=== PATIENT | female | born 1945 | race American Indian/Alaskan Native ===

== ENCOUNTER 2016-10-03 13:20 | Outpatient (CLI) | payer MEDICARE ==
--- NOTE | 2016-10-05 09:01 | Ultrasound Report ---
DIAGNOSTIC LEFT MAMMOGRAM WITH CAD AND TARGETED LEFT BREAST ULTRASOUND: HISTORY: 6 month follow-up study. Comparison is made to the previous mammogram from February 17, 2016 and ultrasound on the same date. FINDINGS: The breast parenchyma is heterogeneously dense. Persistent nodular opacities are seen at the 3 and 12:00 areas respectively, as noted on the previous study. These are unchanged in size. There was no architectural distortion. Several monomorphic benign calcifications are noted. Sonographic evaluation demonstrates a 1.0 x 0.5 cm hypoechoic ovoid-shaped mass with smooth margins and no acoustic shadowing or other associated suspicious features. This is unchanged since the previous study. At the 12:00 position, there is a more elongated ovoid-shaped hypoechoic mass measuring 9 x 6 x 3 mm, also with no acoustic shadowing. No interval change in size or configuration. In the left axillary region, there is a small lymph node with benign features. IMPRESSION: Stable solid lesions in the left breast demonstrating benign imaging features, as detailed above. BI-RADS CATEGORY: 2 = Benign ACR BI-RADS MAMMOGRAPHIC CODES: 0 = Needs additional imaging evaluation; 1 = Negative; 2 = Benign; 3 = Probably benign; 4 = Suspicious; 5 = Malignant; 6 = Known biopsy-proven malignancy COMMENT: 1. Dense breast tissue, i.e., adenosis, fibrocystic changes, etc., may obscure an underlying neoplasm. 2. Approximately 10% of cancers are not detected with mammography. 3. A negative mammography report should not delay biopsy if a clinically suspicious mass is present. RECOMMENDATION: Routine screening schedule, ACS guidelines.
== END 2016-10-03 13:21 | disposition home or self-care (01) ==
LOC: SPVWC 13:20
PROVIDERS: ATTEND Surgery
DX: R92.8 Other abnormal and inconclusive findings on diagnostic imaging of breast (principal)
CPT/HCPCS: 76642; G0206

== ENCOUNTER 2016-12-06 12:18 | Outpatient (CLI) | payer MEDICARE ==
[2016-12-06 12:40] LABS: Basophils % (Auto) 0.3 % (0.0-1.8); Eosinophils % (Auto) 0.2 % (0.0-4.3); Hematocrit 38.6 % (30.3-42.9); Hemoglobin 12.8 gm/dl (10.1-14.3); Mean Corpuscular HGB Conc 33 % (30-34); Mean Corpuscular Hemoglobin 29 pg (28-32); Mean Corpuscular Volume 86 fl (79-97); Platelet Count 350 K/mm3 (140-440); Red Blood Count 4.48 M/mm3 (3.65-5.03); Red Cell Distribution Width 16.1 % (13.2-15.2); White Blood Count 10.6 K/mm3 (4.5-11.0)
[2016-12-06 13:16] LABS: Albumin 4.1 g/dL (3.9-5); BUN/Creatinine Ratio 20.71; Calcium 9.2 mg/dL (8.4-10.2); Phosphorous 3.2 mg/dL (2.5-4.5); Uric Acid 6.5 mg/dL (3.5-7.6)
[2016-12-06 13:17] LABS: Chloride 103.8 mmol/L (98-107); Potassium 4.2 mmol/L (3.6-5.0)
[2016-12-06 13:27] LABS: Bilirubin,Urine NEG (Negative); Blood,Urine NEG (Negative); Ketones,Urine NEG (Negative); Leukocyte Esterase,Urine NEG (Negative); Nitrite,Urine NEG (Negative); Protein,Urine <15 mg/dL mg/dL (Negative); Urobilinogen,Urine < 2.0 mg/dL (<2.0); WBC,Urine < 1.0 /HPF (0.0-6.0)
== END 2016-12-06 12:19 | disposition home or self-care (01) ==
LOC: LAB 12:18
PROVIDERS: ATTEND Internal Medicine Nephrology
DX: I12.9 Hypertensive chronic kidney disease with stage 1 through stage 4 chronic kidney disease, or unspecified chronic kidney disease (principal); N18.3 Chronic kidney disease, stage 3 (moderate); N17.9 Acute kidney failure, unspecified; N25.81 Secondary hyperparathyroidism of renal origin; M10.9 Gout, unspecified; R31.9 Hematuria, unspecified
CPT/HCPCS: 36415; 80048; 81001; 82040; 84100; 84550; 85025

== ENCOUNTER 2017-02-27 14:21 | Outpatient (CLI) | payer MEDICARE ==
--- NOTE | 2017-02-28 10:37 | Mammography Report ---
Bone densitometry: Postmenopausal osteoporosis: BONE DENSITY STUDY: DEFINITIONS: BMD = Bone Mineral Density T-score = BMD related to mean peak bone mass of young adult (mean expressed in Standard Deviation) Z-score = Age matched BMD expressed in SD World Health Organization (WHO) Diagnostic Criteria Normal T-score > -1 SD Osteopenia T-score between -1 and -2.4 SD Osteoporosis T-score -2.5 SD or below FINDINGS: The weighted average BMD of lumbar spine L1-L4 is 0.987 with a T-score of -0.5. The weighted average BMD of hip is 0.665 with a T-score of -1.5. IMPRESSION: The patient's average T-score is diagnostic for osteopenia and average relative risk for fracture. NOTE: BMD is not the only risk factor for fracture; also consider factors such as the patient's age, risk of falling, previous osteoporotic fracture, family history of osteoporotic fractures, current smoker, and low body weight. Whiteside's triangle is a region of interest in femur, predominantly of trabecular bone. It is not a true anatomic site, and [facility] does not recommend its use clinically.
== END 2017-02-27 14:22 | disposition home or self-care (01) ==
LOC: MAMMO 14:21
DX: M85.88 Other specified disorders of bone density and structure, other site (principal); E55.9 Vitamin D deficiency, unspecified; Z91.81 History of falling; I13.2 Hypertensive heart and chronic kidney disease with heart failure and with stage 5 chronic kidney disease, or end stage renal disease; I50.9 Heart failure, unspecified; N18.6 End stage renal disease; J44.9 Chronic obstructive pulmonary disease, unspecified; I25.10 Atherosclerotic heart disease of native coronary artery without angina pectoris; J45.909 Unspecified asthma, uncomplicated
CPT/HCPCS: 77080